=== PATIENT | male | born 1940 | race Caucasian/White ===

== ENCOUNTER 2017-06-30 16:38 | Inpatient (IN) | payer MEDICARE ==
[2017-06-30 17:33] LABS: INR 1.19 (0.77-1.02)
--- NOTE | 2017-06-30 17:44 | RAD ---
INDICATION: Weakness COMPARISON: None. TECHNIQUE: Single AP portable view of the chest was obtained. FINDINGS: Image quality is compromised due to the relative inferiority of a portable chest x-ray. The heart and mediastinum exhibit normal size and contour. Overlying the mid-level left lung is a 1.3 cm triangular density that appears to be located within the major fissure. There is elevation of the left hemidiaphragm somewhat obscuring the left lung base. The right lung is adequately aerated. Visualized bones are normal for the patient's age. IMPRESSION: Density seen at the mid-level left lung could be fluid in the fissure or a soft tissue nodule. There appears to be asymmetric elevation of the left hemidiaphragm.
[2017-06-30 17:47] LABS: EGFR Non-African American 30.4 (>60)
[2017-06-30] MEDS ORDERED: NS 0.9% 1000 ML* 1,000 ML IV ONE (17:54)
[2017-06-30 19:00] LABS: ABS Neutrophils 3.4 10^3/ul (1.5-7.7); Hematocrit 27 % (42-52); Hemoglobin 8.4 g/dl (14.0-18.0); Mean Corpuscular HGB Conc 32 g/dl (31-36); Mean Corpuscular Hemoglobin 22 pg (27-31); Mean Corpuscular Volume 68 fL (80-94); Mean Platelet Volume 9 um3 (7.4-10.4); Platelet Count 95 10^3/ul (150-450); Red Blood Count 3.88 10^6/ul (4.0-5.4); Red Cell Distribution Width 30 % (10.5-15); White Blood Count 6.6 10^3/ul (3.5-10.8)
[2017-06-30 19:20] LABS: Urine Appearance Cloudy; Urine Blood 1+ (Negative); Urine Color Yellow; Urine Ketones Negative (Negative); Urine Protein Negative (Negative); Urine Specific Gravity 1.009 (1.010-1.030); Urine Urobilinogen Negative (Negative)
[2017-06-30] MEDS ORDERED: NS 0.9% 500 ML* 500 ML IV ONE (20:12)
[2017-06-30] MEDS ORDERED: Acetaminophen TAB* 325 MG PO PRN (20:14)
[2017-06-30] MEDS ORDERED: Ondansetron INJ* 2 MG/ML VIAL IV PRN (20:14)
[2017-06-30] MEDS ORDERED: Al Hydrox/Mg Hydrox/Simet LIQ* 30 ML UDC PO PRN (20:14)
[2017-06-30] MEDS ORDERED: Morphine INJ* 2 MG/ML 1 ML CARPUJECT IV PRN (20:14)
--- NOTE | 2017-06-30 21:37 | RAD ---
INDICATION: Headache and weakness patient recently diagnosed with metastatic colon cancer COMPARISON: None. TECHNIQUE: Contiguous axial sections of the brain were obtained from the skull base to the vertex without contrast. FINDINGS: The ventricles, cisterns and sulci mild symmetrical involutional changes. The mitchell-white matter differentiation is adequately maintained and there is no sulcal effacement. No significant focal abnormality or mass effect is present. There is no evidence for intracranial hemorrhage. There is coarse atherosclerotic calcification of the bilateral vertebral arteries and petrous carotid arteries. No significant focal osseous abnormality is present. The visualized portion of the paranasal sinuses appear clear. The posterior left mastoid air cells are hypoplastic relative to the contralateral side. Otherwise the mastoid air cells are well aerated bilaterally. IMPRESSION: No acute intracranial abnormality including hemorrhage or intracranial mass.
[2017-06-30] MEDS: Ferrous Sulfate TAB* 325 MG PO SCH (21:46)
--- NOTE | 2017-06-30 22:19 | PN ---
Progress Note - Progress Note Date of Service: 06/30/17 Note: Arrived to floor hypothermic, ordered blood cultures and started cefepime - initial u/a is was not a clean catch. Asked for a repeat clean catch. Will place bear hugger. Family and patient decided DNR/DNI - MOL[facility] signed.
[2017-06-30] MEDS: Cefepime 1 GM in Dextrose(*) 1 GM/50 ML BAG IV SCH (23:46)
[2017-07-01] MEDS ORDERED: NS 0.9% 500 ML* 500 ML IV ONE (03:03)
[2017-07-01 04:15] LABS: Urine Appearance Clear; Urine Blood 1+ (Negative); Urine Color Yellow; Urine Ketones Negative (Negative); Urine Protein Negative (Negative); Urine Urobilinogen Negative (Negative)
--- NOTE | 2017-07-01 04:16 | HP ---
CC: Dr. Carrasco; Dr. Cai * HISTORY AND PHYSICAL: DATE OF ADMISSION: 06/30/17 TIME OF EVALUATION: 1899. PRIMARY CARE PHYSICIAN: Tom Carrasco MD ONCOLOGIST: Jose Cai MD CHIEF COMPLAINT: Weakness. HISTORY OF PRESENT ILLNESS: This is a 77-year-old male with a past medical history of presumed colon cancer with liver metastasis, followed by Dr. Cai, who presented to the emergency room today for worsening weakness over the past week. The patient states he started with significant diffuse body swelling back in March. He went to see his primary care physician, he got worked up. He was found to have congestive heart failure and cancer, presumed to be colon with liver metastasis and an ejection fraction of 25% and he is being seen by Dr. Carr. He states he appeared to be cleared for chemotherapy. He was scheduled to get a port placed tomorrow with Dr. Reyez, but his weakness has gotten worse. He has had worsening loose stools with uncontrolled stool incontinence in the morning. He has also noticed recent bright red blood per rectum and dark stools. He has had significant amount of lightheadedness. The past week, his appetite has significantly diminished and he is also complaining of significant pressure behind his eyes with vision changes. He also has some low back pain. He denies any urinary symptoms, no urinary incontinence, burning , or retention. He came to the emergency room this evening, because he has been unable to get out of bed for the past 3 to 4 days. He is incredibly weak. He is using a walker. He has no falls in the past few weeks. His , Cecilia, has been helping him at home. She states that she has been managing his care without any issues. He states he is mildly short of breath. He has had some right-sided chest pain. He has had a cough off and on for the past few weeks. No fevers, no chills, no nausea, and no vomiting. Otherwise, review of systems is negative. In the emergency room, the patient has labs, imaging, and was referred to the hospitalist service for further evaluation. PAST MEDICAL HISTORY: 1. Presumed colon cancer with liver metastasis, followed by Dr. Cai. 2. Iron deficiency anemia. 3. History of cataracts. 4. History of shoulder surgery in 1949. 5. History of knee surgery in 1950. 6. History of pilonidal cyst surgery in the past. 7. History of congenital absent kidney. 8. History of congestive heart failure with ejection fraction of 25% to 30% based on echo in April 2017, followed by Dr. Carr. 9. [id number] MR. MEDICATIONS: 1. Ferrous sulfate 325 mg p.o. b.i.d. 2. Atorvastatin 20 mg p.o. daily. 3. Torsemide 40 mg p.o. daily. 4. Digoxin was discontinued on 06/28/17. 5. Potassium chloride 20 mEq 2 tabs p.o. daily. 6. Aspirin 81 mg daily. 7. His losartan 25 mg p.o. daily was also discontinued on 06/28/17. ALLERGIES: No known drug allergies. FAMILY HISTORY: Father at age 77 from congestive heart failure and mother at age 75 from brain tumor, sister in her 60s from presumed liver cancer and brother from an NM at age 45. SOCIAL HISTORY: The patient lives at home with his , Cecilia, who is his healthcare proxy. 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 They moved to [place] years ago. He has a [id number] history of smoking, quit in 2006. No alcohol or illicit drug use. His healthcare proxy is his , Cecilia. I discussed the MOL[facility] at length. They are going to review with the and son and fill it out and get it back to me. REVIEW OF SYSTEMS: A 14-point review of systems as mentioned in the HPI, otherwise negative. PHYSICAL EXAMINATION GENERAL: Frail and elderly cachectic male, in no acute distress, with his and son at the bedside. VITAL SIGNS: Temp 98.3, pulse rate 65, respiratory rate 14, oxygen saturation 98 % on room air, blood pressure 106/58. HEENT: Bitemporal muscle wasting. Head normocephalic. Pupils equal, reactive , anicteric. Oropharynx: Mucous membranes are dry. NECK: Supple. No lymphadenopathy. RESPIRATORY: Diminished breath sounds, prolonged expiratory phase. No wheezing , rhonchi, or rales. CARDIAC: Regular rate and rhythm. Soft systolic murmur heard best at the right sternal base. ABDOMEN: Hypoactive bowel sounds. Moderate distention. Moderately firm. Generalized tenderness. No rebound or guarding. EXTREMITIES: +1 pretibial edema. +1 DPs. NEUROLOGIC: Alert and oriented x3. No gross focal neurologic deficits. He has diffuse symmetrical weakness. DIAGNOSTIC STUDIES/LAB DATA: White count 6.6, hemoglobin 8.4, hematocrit 27, platelets 95. INR is 1.19. Sodium 138, potassium 3.7, chloride 99, bicarb 29, BUN 69, creatinine 2.12, glucose 132, lactic acid 3.0. Total bilirubin 5.2, AST 58, ALT 41, alk phos 555. Troponin 0.06. CRP is 104. Albumin is 2.4. TSH is 3.33. UA: +1 blood, positive nitrite, +3 leuks, trace blood, 3+ white, positive squamous cells. Radiographic data: Density seen at the mid level, left lung, could be fluid or fissure or soft tissue nodule. There appears to be asymmetric elevation of the left hemidiaphragm. EKG: Shows sinus bradycardia with a heart rate of 58, first-degree heart block , left bundle branch block. No prior EKG to compare to. ASSESSMENT AND PLAN: This is a 77-year-old male with a past medical history of a recent diagnosis with presumed colon cancer with liver metastasis, followed by Dr. Cai, not yet started treatment, and new diagnosis of congestive heart failure, presents to the emergency room with weakness. 1. Weakness. Assessment: This appears to be multifactorial. He appears to be dehydrated, likely from overdiuresis and with the stool output and anemia, as also could be progression of his cancer with the elevated bilirubin as well. I did speak with Dr. Garcia regarding admission and they will take over service in the morning. Plan: We will admit him to telemetry. We will give him a gentle 500 cc bolus and a unit of blood. We will repeat an H and H this evening and repeat his labs in the morning. Renally dose his medications. We will order an ultrasound to rule out portal vein thrombosis and any progression of liver disease into the biliary tract in the setting with elevated bilirubin. 2. Elevated troponin. I suspect this is in the setting of renal failure. He has no chest pain. Plan: We will trend his troponin. 3. Pyuria. The patient has no urinary symptoms. He states this urine sample was not a clean catch. He has lot of scrotal edema. Bladder scan was less than 100 cc. We will continue bladder scanning him. It is possible there is an obstruction there leading to his renal failure. He may need a Mcconnell at some point. 3. Vision changes with pressure behind the eyes. Assessment: Per Dr. Garcia unlikely this is brain metastasis. Plan: We will start with a head CT and follow up accordingly for further imaging determined by Oncology. CHRONIC MEDICAL PROBLEMS: 1. Colon cancer with liver mets. Assessment: The patient with ongoing bloody stools and progression, what appears to be worsening performance status. He was scheduled to get a port placed tomorrow and gets chemotherapy initiated. I spoke with him in length regarding his prognosis. He states he is aware, Dr. Cai told him 2 months to 2 years. I spoke that he may be able to perk up from this, but he may no longer be a candidate for chemotherapy. They are going to go through the MOL[facility] form at length and follow up with Oncology in the morning. 2. FEN. Low-salt diet. Regular diet. 3. DVT prophylaxis. Place him on SCDs in the setting of GI bleed. 4. Code status for now is full code. MOLST form was given to them, they are going to look out it and discuss together. Recommend follow up on this. I spoke with him at length regarding his poor prognosis. PATIENT TIME: Greater than 70 minutes doing the history and physical, more than half the time spent in direct patient contact. [id number]/[facility] #: [id number] APARNA
[2017-07-01 04:37] LABS: Hematocrit 25 % (42-52); Hemoglobin 8.1 g/dl (14.0-18.0); Mean Corpuscular HGB Conc 33 g/dl (31-36); Mean Corpuscular Hemoglobin 23 pg (27-31); Mean Corpuscular Volume 69 fL (80-94); Red Blood Count 3.61 10^6/ul (4.0-5.4); Red Cell Distribution Width 30 % (10.5-15); White Blood Count 6.7 10^3/ul (3.5-10.8)
[2017-07-01 04:47] LABS: EGFR Non-African American 30.1 (>60)
[2017-07-01 05:20] LABS: Platelet Count 183 10^3/ul (150-450)
[2017-07-01 05:58] LABS: Hematocrit 26 % (42-52); Hemoglobin 8.7 g/dl (14.0-18.0)
[2017-07-01 06:08] LABS: Monocytes % 1 % (0-7)
[2017-07-01] MEDS: Ferrous Sulfate TAB* 325 MG PO SCH ×2 (09:11→20:49)
--- NOTE | 2017-07-01 09:57 | PN ---
Progress Note - Progress Note Date of Service: 07/01/17 SOAP: Subjective: []Feeling OK, but very tired and weak. Hot with bear hugger. Feels better laying on side then back. Bladder scan this AM with >400 mL, little UO per nursing and I&Os. Breathing feels OK. Understands limited prognosis, though isn't sure what he wants at this time. is not in yet. Medications: Acetaminophen (Tylenol Tab*) 650 mg PO Q4H PRN PRN Reason: FEVER/PAIN Last Admin: 07/01/17 09:11 Dose: 650 mg Al Hydrox/Mg Hydrox/Simethicone (Maalox Plus*) 30 ml PO Q6H PRN PRN Reason: INDIGESTION Ferrous Sulfate (Ferrous Sulfate Tab*) 325 mg PO BID [facility] Last Admin: 07/01/17 09:11 Dose: 325 mg Cefepime HCl (Maxipime 1 Gm In Dextrose Duplex (*)) 1 gm in 50 mls @ 100 mls/ hr IV Q12H [facility] Last Admin: 06/30/17 23:46 Dose: 100 mls/hr Morphine Sulfate (Morphine Inj (Syringe)*) 2 mg IV Q4H PRN PRN Reason: PAIN Ondansetron HCl (Zofran Inj*) 4 mg IV Q4H PRN PRN Reason: NAUSEA/VOMITING Oxycodone/Acetaminophen (Percocet 5/325 Tab*) 1 tab PO Q4H PRN PRN Reason: Pain Objective: [] Vital Signs Temp Pulse Resp BP Pulse Ox 97.6 F 73 17 88/44 94 07/01/17 07:23 07/01/17 07:23 07/01/17 07:32 07/01/17 07:20 07/01/17 07:23 A&Ox3, EOMI, notably weak and sleepy HRR, SR on tele, distant heart sounds LS clear bilat., resp. even and non-labored +BS, abd. soft and non-tender +peripheral edema Skin dry with poor turgor Laboratory Results - last 24 hr 06/30/17 06/30/17 06/30/17 17:15 17:15 17:15 WBC 6.6 RBC 3.88 L Hgb 8.4 L Hct 27 L MCV 68 L MCH 22 L MCHC 32 RDW 30 H Plt Count 95 L MPV 9 Neut % (Auto) Not Reportable Lymph % (Auto) Not Reportable Hunt % (Auto) Not Reportable Eos % (Auto) Not Reportable Baso % (Auto) Not Reportable Absolute Neuts (auto) 3.4 Absolute Lymphs (auto) Not Reportable Absolute Monos (auto) Not Reportable Absolute Eos (auto) Not Reportable Absolute Basos (auto) Not Reportable Absolute Nucleated RBC Not Reportable Neutrophils % Lymphocytes % Monocytes % Eosinophils % Basophils % Nucleated RBC % Not Reportable Abs Neuts (Manual) Abs Lymphs (Manual) Abs Monocytes (Manual) Absolute Eos (Manual) Abs Basophils (Manual) Large Platelets Normal RBC Morphology Polychromasia 2+ Hypochromasia 2+ Anisocytosis 1+ Microcytosis 2+ Target Cells Elliptocytes INR (Anticoag Therapy) Sodium 138 Potassium 3.7 Chloride 99 L Carbon Dioxide 29 Anion Gap 10 BUN 69 H Creatinine 2.12 H Est GFR ( Amer) 39.2 Est GFR (Non-Af Amer) 30.4 BUN/Creatinine Ratio 32.5 H Glucose 132 H POC Glucose (mg/dL) Lactic Acid 3.0 H* Calcium 8.1 L Magnesium 2.6 Total Bilirubin 5.20 H AST 58 H ALT 41 Alkaline Phosphatase 555 H Total Creatine Kinase 103 Troponin I 0.06 H* C-Reactive Protein 104.55 H Total Protein 5.1 L Albumin 2.4 L Globulin 2.7 Albumin/Globulin Ratio 0.9 L Prealbumin 5 L TSH 3.33 Cortisol Urine Color Urine Appearance Urine pH Ur Specific Hanahan Urine Protein Urine Ketones Urine Blood Urine Nitrate Urine Bilirubin Urine Urobilinogen Ur Leukocyte Esterase Urine WBC (Auto) Urine RBC (Auto) Ur Squamous Epith Cells Urine Bacteria Hyaline Casts Urine Glucose Blood Type Antibody Screen Crossmatch Donor Unit # Post-Trans Blood Type Post-Trans SINDY 06/30/17 06/30/17 06/30/17 17:15 17:15 19:00 WBC RBC Hgb Hct MCV MCH MCHC RDW Plt Count MPV Neut % (Auto) Lymph % (Auto) Hunt % (Auto) Eos % (Auto) Baso % (Auto) Absolute Neuts (auto) Absolute Lymphs (auto) Absolute Monos (auto) Absolute Eos (auto) Absolute Basos (auto) Absolute Nucleated RBC Neutrophils % Lymphocytes % Monocytes % Eosinophils % Basophils % Nucleated RBC % Abs Neuts (Manual) Abs Lymphs (Manual) Abs Monocytes (Manual) Absolute Eos (Manual) Abs Basophils (Manual) Large Platelets Normal RBC Morphology Polychromasia Hypochromasia Anisocytosis Microcytosis Target Cells Elliptocytes INR (Anticoag Therapy) 1.19 H Sodium Potassium Chloride Carbon Dioxide Anion Gap BUN Creatinine Est GFR ( Amer) Est GFR (Non-Af Amer) BUN/Creatinine Ratio Glucose POC Glucose (mg/dL) Lactic Acid Calcium Magnesium Total Bilirubin AST ALT Alkaline Phosphatase Total Creatine Kinase Troponin I C-Reactive Protein Total Protein Albumin Globulin Albumin/Globulin Ratio Prealbumin TSH Cortisol Urine Color Yellow Urine Appearance Cloudy Urine pH 5.0 Ur Specific Hanahan 1.009 L Urine Protein Negative Urine Ketones Negative Urine Blood 1+ A Urine Nitrate Positive A Urine Bilirubin Negative Urine Urobilinogen Negative Ur Leukocyte Esterase 3+ A Urine WBC (Auto) 3+(>20/hpf) A Urine RBC (Auto) Trace(0-2/hpf) Ur Squamous Epith Cells Present A Urine Bacteria Absent Hyaline Casts Present A Urine Glucose Negative Blood Type A Positive Antibody Screen Negative Crossmatch See Detail Donor Unit # Post-Trans Blood Type Post-Trans SINDY 06/30/17 07/01/17 07/01/17 21:49 02:45 04:07 WBC 6.7 RBC 3.61 L Hgb 8.1 L Hct 25 L MCV 69 L MCH 23 L MCHC 33 RDW 30 H Plt Count 183 MPV Not Reportable Neut % (Auto) Lymph % (Auto) Hunt % (Auto) Eos % (Auto) Baso % (Auto) Absolute Neuts (auto) Absolute Lymphs (auto) Absolute Monos (auto) Absolute Eos (auto) Absolute Basos (auto) Absolute Nucleated RBC Neutrophils % 94 H Lymphocytes % 5 L Monocytes % 1 Eosinophils % 0 Basophils % 0 Nucleated RBC % Abs Neuts (Manual) 6.3 Abs Lymphs (Manual) 0.3 L Abs Monocytes (Manual) 0.1 Absolute Eos (Manual) 0 Abs Basophils (Manual) 0 Large Platelets Present Normal RBC Morphology Not Reportable Polychromasia Hypochromasia 2+ Anisocytosis Microcytosis Target Cells 2+ Elliptocytes 1+ INR (Anticoag Therapy) Sodium Potassium Chloride Carbon Dioxide Anion Gap BUN Creatinine Est GFR ( Amer) Est GFR (Non-Af Amer) BUN/Creatinine Ratio Glucose POC Glucose (mg/dL) Lactic Acid Calcium Magnesium Total Bilirubin AST ALT Alkaline Phosphatase Total Creatine Kinase Troponin I 0.05 H* C-Reactive Protein Total Protein Albumin Globulin Albumin/Globulin Ratio Prealbumin TSH Cortisol Urine Color Yellow Urine Appearance Clear Urine pH 5.0 Ur Specific Hanahan 1.010 Urine Protein Negative Urine Ketones Negative Urine Blood 1+ A Urine Nitrate Positive A Urine Bilirubin Negative Urine Urobilinogen Negative Ur Leukocyte Esterase 2+ A Urine WBC (Auto) 3+(>20/hpf) A Urine RBC (Auto) 2+(6-10/hpf) A Ur Squamous Epith Cells Urine Bacteria 1+ A Hyaline Casts Urine Glucose Negative Blood Type Antibody Screen Crossmatch Donor Unit # Post-Trans Blood Type Post-Trans SINDY 07/01/17 07/01/17 07/01/17 04:07 04:07 04:11 WBC RBC Hgb Hct MCV MCH MCHC RDW Plt Count MPV Neut % (Auto) Lymph % (Auto) Hunt % (Auto) Eos % (Auto) Baso % (Auto) Absolute Neuts (auto) Absolute Lymphs (auto) Absolute Monos (auto) Absolute Eos (auto) Absolute Basos (auto) Absolute Nucleated RBC Neutrophils % Lymphocytes % Monocytes % Eosinophils % Basophils % Nucleated RBC % Abs Neuts (Manual) Abs Lymphs (Manual) Abs Monocytes (Manual) Absolute Eos (Manual) Abs Basophils (Manual) Large Platelets Normal RBC Morphology Polychromasia Hypochromasia Anisocytosis Microcytosis Target Cells Elliptocytes INR (Anticoag Therapy) Sodium 138 Potassium 3.4 L Chloride 101 Carbon Dioxide 29 Anion Gap 8 BUN 72 H Creatinine 2.14 H Est GFR ( Amer) 38.7 Est GFR (Non-Af Amer) 30.1 BUN/Creatinine Ratio 33.6 H Glucose 69 L POC Glucose (mg/dL) Lactic Acid Calcium 7.4 L Magnesium Total Bilirubin 5.10 H AST 55 H ALT 36 Alkaline Phosphatase 471 H Total Creatine Kinase Troponin I C-Reactive Protein Total Protein 4.4 L Albumin 2.1 L Globulin 2.3 Albumin/Globulin Ratio 0.9 L Prealbumin TSH Cortisol 24.71 Urine Color Urine Appearance Urine pH Ur Specific Hanahan Urine Protein Urine Ketones Urine Blood Urine Nitrate Urine Bilirubin Urine Urobilinogen Ur Leukocyte Esterase Urine WBC (Auto) Urine RBC (Auto) Ur Squamous Epith Cells Urine Bacteria Hyaline Casts Urine Glucose Blood Type Antibody Screen Crossmatch Donor Unit # [id number] Post-Trans Blood Type A Positive Post-Trans SINDY Negative 07/01/17 07/01/17 05:44 07:18 WBC RBC Hgb 8.7 L Hct 26 L MCV MCH MCHC RDW Plt Count MPV Neut % (Auto) Lymph % (Auto) Hunt % (Auto) Eos % (Auto) Baso % (Auto) Absolute Neuts (auto) Absolute Lymphs (auto) Absolute Monos (auto) Absolute Eos (auto) Absolute Basos (auto) Absolute Nucleated RBC Neutrophils % Lymphocytes % Monocytes % Eosinophils % Basophils % Nucleated RBC % Abs Neuts (Manual) Abs Lymphs (Manual) Abs Monocytes (Manual) Absolute Eos (Manual) Abs Basophils (Manual) Large Platelets Normal RBC Morphology Polychromasia Hypochromasia Anisocytosis Microcytosis Target Cells Elliptocytes INR (Anticoag Therapy) Sodium Potassium Chloride Carbon Dioxide Anion Gap BUN Creatinine Est GFR ( Amer) Est GFR (Non-Af Amer) BUN/Creatinine Ratio Glucose POC Glucose (mg/dL) 75 Lactic Acid Calcium Magnesium Total Bilirubin AST ALT Alkaline Phosphatase Total Creatine Kinase Troponin I C-Reactive Protein Total Protein Albumin Globulin Albumin/Globulin Ratio Prealbumin TSH Cortisol Urine Color Urine Appearance Urine pH Ur Specific Han[place] Urine Protein Urine Ketones Urine Blood Urine Nitrate Urine Bilirubin Urine Urobilinogen Ur Leukocyte Esterase Urine WBC (Auto) Urine RBC (Auto) Ur Squamous Epith Cells Urine Bacteria Hyaline Casts Urine Glucose Blood Type Antibody Screen Crossmatch Donor Unit # Post-Trans Blood Type Post-Trans SINDY Intake and Output Last 24 Hours 06/29/17 06/30/17 07/01/17 07/02/17 06:59 06:59 06:59 06:59 Intake Total 1380 Output Total 350 Balance 1030 Weight 138 lb 6.4 oz Intake: IV Fluids 1030 NS (0.9%) 1030 IVPB 320 NS (0.9%) 320 Oral 30 Output: Urine 350 Other: Estimated Void Small # Bowel Movements 1 Estimated Stool Amount Small # Voids 1 Assessment: []77 yo male with recently diagnosed stage IV colon cancer admitted with weakness. He has significant liver dysfunction and at this point is not a candidate for therapy, I have counseled him that his prognosis is guarded. Long discussion with pt. and regarding the reality of his current condition. His liver US shows biliary dilation that if is infective may start to improve with abx., however underlying tumor burden likely the culprit. His underlying poor cardiac function further complicates his condition and while I think it prudent to see if he improves over the next 24 hours, I think ultimately he will benefit most from hospice and his is in agreement. At this time she is motivated to take him home. Plan: []Palliative consult and hospice referral Cont. IV fluids and abx. today, repeat labs in AM Focus on comfort and will use borja to decrease urinary retention and pt. comfort DNR/DNI
[2017-07-01] MEDS ORDERED: NS 0.9% w/ 40 Meq KCL 1000 ML* 1,000 ML IV SCH (10:00)
--- NOTE | 2017-07-01 10:12 | RAD ---
Indication: Ascites in a patient with colon cancer metastatic to the liver Comparison: CT dated May 01, 2017 that shows multiple large metastatic masses in the liver Technique: Duplex ultrasound with spectral analysis was used to study select portions of the IVC, the portal venous system (portal veins, SMV and splenic veins) and hepatic veins. Report: At least 2 large liver masses are identified in the right lobe measuring 12.5 and 9.4 cm in greatest dimension. The liver is enlarged overall measuring 20.5 cm in greatest cephalocaudal dimension. There is severe intrahepatic biliary duct dilatation and the common bile duct is dilated up to 1 cm in diameter. Intraluminal gallstones are noted. The hepatic veins are patent and demonstrate normal hepatofugal flow. The IVC is patent. The portal vein is mildly dilated measuring 1.5 cm in diameter. The portal and main branches are patent and demonstrate normal hepatopetal flow. Portal wave form is normal. The splenic and visualized portions of the superior mesenteric veins are adequately patent and exhibit hepatopetal flow. IMPRESSION: 1. Large liver masses corresponding to the images acquired on the May 01, 2017 CT exam. 2. Intra and extrahepatic biliary duct dilatation. 3. Patent flow with correct directionality identified in the hepatic and portal veins, although the portal vein is mildly dilated to 1.5 cm.
[2017-07-01] MEDS: Cefepime 1 GM in Dextrose(*) 1 GM/50 ML BAG IV SCH ×2 (11:12→23:22)
--- NOTE | 2017-07-01 11:21 | ED ---
Jaya Olguin Thomas, scribed for Kris Desai MD on 06/30/17 at 1703 . Complex/Multi-Sys Presentation - HPI Summary HPI Summary: The patient is a 77 year old male who was diagnosed with liver cancer about a month ago. Today, he came to the emergency department with generalized weakness that began suddenly today. He also reports feelings of disorientation. He complains of diarrhea. His oncologist is Dr. Cai and his oil field operator is Dr. Carr. - History Of Current Complaint Time Seen by Provider: 06/30/17 16:42 Hx Obtained From: Patient Onset/Duration: Sudden Onset, Lasting Hours, Still Present Timing: Constant Severity Currently: Moderate Alleviating Factor(s): None Associated Signs And Symptoms: Positive: Other - Generalized weakness, disorientation, diarrhea Related History: Other - Recent Dx liver cancer - Allergies/Home Medications Allergies/Adverse Reactions: Allergies Allergy/AdvReac Type Severity Reaction Status Date / Time No Known Allergies Allergy Verified 05/20/17 10:20 Home Medications: Home Medications Spironolactone TAB* [Aldactone TAB*] 25 mg PO DAILY 06/30/17 [History Confirmed 06/30/17] PMH/Surg Hx/FS Hx/Imm Hx Endocrine/Hematology History: Denies: Hx Diabetes Cardiovascular History: Reports: Hx Hypertension History: Denies: Hx Renal Disease - Cancer History Cancer Type, Location and Year: Liver CA Infectious Disease History: Denies: Traveled Outside the [place] in Last 30 Days - Family History Known Family History: Positive: Other - Brain CA - Social History Alcohol Use: Rare Substance Use Type: Reports: None Smoking Status (MU): Former Smoker Review of Systems Positive: Diarrhea Neurological: Other - Generalized weakness, disorientation All Other Systems Reviewed And Are Negative: Yes Physical Exam - Summary Physical Exam Summary: Appearance: The patient is well-nourished in no acute distress and in no acute pain. Skin: The skin is warm and dry and skin color reflects adequate perfusion. He is slightly jaundiced. HEENT: The head is normocephalic and atraumatic. The pupils are equal and reactive. The sclerae are icteric. Nares are patent and without drainage. Mouth reveals moist mucous membranes and the throat is without erythema and exudate. The external ears are intact. The ear canals are patent and without drainage. The tympanic membranes are intact. Neck: the neck is supple with full range of motion and non-tender. There are no carotid bruits. There is no neck vein distension. Respiratory: Chest is non-tender. Lungs are clear to auscultation and breath sounds are symmetrical and equal. Cardiovascular: Heart is regular rate and rhythm.~There is no murmur or rub auscultated. There is no peripheral edema and pulses are symmetrical and equal. Abdomen: The abdomen is soft and non-tender. There are normal bowel sounds heard in all four quadrants and there is no organomegaly palpated. Musculoskeletal: There is no back tenderness noted. Extremities are non-tender with full range of motion. There is good capillary refill. There is no peripheral edema or calf tenderness elicited. Neurological: Patient is alert and oriented to person, place and time. The patient has symmetrical motor strength in all four extremities.~Cranial nerves are grossly intact. Deep tendon reflexes are symmetrical and equal in all four extremities. Psychiatric: The patient has an appropriate affect and does not exhibit any anxiety or depression. Triage Information Reviewed: Yes Vital Signs On Initial Exam: Initial Vitals BP 104/54 06/30/17 16:46 Vital Signs Reviewed: Yes Diagnostics - Vital Signs Vital Signs Temp Pulse Resp BP Pulse Ox 06/30/17 20:01 65 18 102/69 96 06/30/17 20:00 63 10 97 06/30/17 19:30 60 19 108/64 97 06/30/17 19:00 64 22 109/75 98 06/30/17 18:30 62 23 106/63 96 06/30/17 18:00 60 15 99/62 96 06/30/17 17:30 62 18 103/70 100 06/30/17 17:06 98.3 F 58 16 95/63 99 06/30/17 17:00 18 95/63 06/30/17 16:48 51 16 100 06/30/17 16:46 104/54 - Laboratory Lab Results: Lab Results 06/30/17 06/30/17 06/30/17 Range/Units 17:15 17:15 17:15 WBC 6.6 (3.5-10.8) 10^3/ul RBC 3.88 L (4.0-5.4) 10^6/ul Hgb 8.4 L (14.0-18.0) g/dl Hct 27 L (42-52) % MCV 68 L (80-94) fL MCH 22 L (27-31) pg MCHC 32 (31-36) g/dl RDW 30 H (10.5-15) % Plt Count 95 L (150-450) 10^3/ul MPV 9 (7.4-10.4) um3 Neut % (Auto) Not Reportable Lymph % (Auto) Not Reportable [place] % (Auto) Not Reportable Eos % (Auto) Not Reportable Baso % (Auto) Not Reportable Absolute Neuts (auto) 3.4 (1.5-7.7) 10^3/ul Absolute Lymphs (auto) Not Reportable Absolute Monos (auto) Not Reportable Absolute Eos (auto) Not Reportable Absolute Basos (auto) Not Reportable Absolute Nucleated RBC Not Reportable Nucleated RBC % Not Reportable Polychromasia 2+ Hypochromasia 2+ Anisocytosis 1+ Microcytosis 2+ INR (Anticoag Therapy) (0.77-1.02) Sodium 138 (133-145) mmol/L Potassium 3.7 (3.5-5.0) mmol/L Chloride 99 L (101-111) mmol/L Carbon Dioxide 29 (22-32) mmol/L Anion Gap 10 (2-11) mmol/L BUN 69 H (6-24) mg/dL Creatinine 2.12 H (0.67-1.17) mg/dL Est GFR ( Amer) 39.2 (>60) Est GFR (Non-Af Amer) 30.4 (>60) BUN/Creatinine Ratio 32.5 H (8-20) Glucose 132 H (70-100) mg/dL Lactic Acid 3.0 H* (0.5-2.0) mmol/L Calcium 8.1 L (8.6-10.3) mg/dL Magnesium 2.6 (1.9-2.7) mg/dL Total Bilirubin 5.20 H (0.2-1.0) mg/dL AST 58 H (13-39) U/L ALT 41 (7-52) U/L Alkaline Phosphatase 555 H (34-104) U/L Total Creatine Kinase 103 (10-223) U/L Troponin I 0.06 H* (<0.04) ng/mL C-Reactive Protein 104.55 H (< 5.00) mg/L Total Protein 5.1 L (6.4-8.9) g/dL Albumin 2.4 L (3.2-5.2) g/dL Globulin 2.7 (2-4) g/dL Albumin/Globulin Ratio 0.9 L (1-3) Prealbumin 5 L (18-38) mg/dL TSH 3.33 (0.34-5.60) mcIU/mL Urine Color Urine Appearance Urine pH (5-9) Ur Specific [place] (1.010-1.030) Urine Protein (Negative) Urine Ketones (Negative) Urine Blood (Negative) Urine Nitrate (Negative) Urine Bilirubin (Negative) Urine Urobilinogen (Negative) Ur Leukocyte Esterase (Negative) Urine WBC (Auto) (Absent) Urine RBC (Auto) (Absent) Ur Squamous Epith Cells (Absent) Urine Bacteria (Absent) Hyaline Casts (Absent) Urine Glucose (Negative) Blood Type Antibody Screen Crossmatch 06/30/17 06/30/17 06/30/17 Range/Units 17:15 17:15 19:00 WBC (3.5-10.8) 10^3/ul RBC (4.0-5.4) 10^6/ul Hgb (14.0-18.0) g/dl Hct (42-52) % MCV (80-94) fL MCH (27-31) pg MCHC (31-36) g/dl RDW (10.5-15) % Plt Count (150-450) 10^3/ul MPV (7.4-10.4) um3 Neut % (Auto) Lymph % (Auto) [place] % (Auto) Eos % (Auto) Baso % (Auto) Absolute Neuts (auto) (1.5-7.7) 10^3/ul Absolute Lymphs (auto) Absolute Monos (auto) Absolute Eos (auto) Absolute Basos (auto) Absolute Nucleated RBC Nucleated RBC % Polychromasia Hypochromasia Anisocytosis Microcytosis INR (Anticoag Therapy) 1.19 H (0.77-1.02) Sodium (133-145) mmol/L Potassium (3.5-5.0) mmol/L Chloride (101-111) mmol/L Carbon Dioxide (22-32) mmol/L Anion Gap (2-11) mmol/L BUN (6-24) mg/dL Creatinine (0.67-1.17) mg/dL Est GFR ( Amer) (>60) Est GFR (Non-Af Amer) (>60) BUN/Creatinine Ratio (8-20) Glucose (70-100) mg/dL Lactic Acid (0.5-2.0) mmol/L Calcium (8.6-10.3) mg/dL Magnesium (1.9-2.7) mg/dL Total Bilirubin (0.2-1.0) mg/dL AST (13-39) U/L ALT (7-52) U/L Alkaline Phosphatase (34-104) U/L Total Creatine Kinase (10-223) U/L Troponin I (<0.04) ng/mL C-Reactive Protein (< 5.00) mg/L Total Protein (6.4-8.9) g/dL Albumin (3.2-5.2) g/dL Globulin (2-4) g/dL Albumin/Globulin Ratio (1-3) Prealbumin (18-38) mg/dL TSH (0.34-5.60) mcIU/mL Urine Color Yellow Urine Appearance Cloudy Urine pH 5.0 (5-9) Ur Specific [place] 1.009 L (1.010-1.030) Urine Protein Negative (Negative) Urine Ketones Negative (Negative) Urine Blood 1+ A (Negative) Urine Nitrate Positive A (Negative) Urine Bilirubin Negative (Negative) Urine Urobilinogen Negative (Negative) Ur Leukocyte Esterase 3+ A (Negative) Urine WBC (Auto) 3+(>20/hpf) A (Absent) Urine RBC (Auto) Trace(0-2/hpf) (Absent) Ur Squamous Epith Cells Present A (Absent) Urine Bacteria Absent (Absent) Hyaline Casts Present A (Absent) Urine Glucose Negative (Negative) Blood Type A Positive Antibody Screen Negative Crossmatch See Detail Result Diagrams: 07/01/17 05:44 07/01/17 04:07 Lab Statement: Any lab studies that have been ordered have been reviewed, and results considered in the medical decision making process. - Radiology CXR Xray Interpretation: No Acute Changes - Density seen at the mid-level left lung could be fluid in the fissure or a soft tissue nodule. There appears to be asymmetric elevation of the left hemidiaphragm. Dr. Desai has reviewed this report. Radiology Interpretation Completed By: Radiologist - EKG 17:10 Cardiac Rate: NL EKG Rhythm: Sinus Rhythm - at 58 BPM EKG Interpretation: LBBB. No old EKGs to compare. Re-Evaluation - Re-Evaluation First Eval Re-Evaluation Time: 19:30 Comment: Results discussed. Patient will be seen by the hospitalists. Complex Multi-Symp Course/Dx Course Of Treatment: Mr. Santana had the sudden onset of severe fatigue and exhaustion today. He has been diagnosed relatively recently with colon CA with liver mets. He was jaundiced and icteric on presentation and found to have a obstructive looking picture on transaminases. He was anemic which is old and had renal insufficiency which is new. His trop was indeterminant and there are no old ones to compare. The hospitalist service is admitting him. - Diagnoses Provider Diagnoses: Jaundice, Hepatitis - Physician Notifications Discussed Care Of Patient With: Poppy Payne Time Discussed With Above Provider: 19:31 Instructed by Provider To: Admit As Inpatient Discharge - Discharge Plan Condition: Stable Disposition: ADMITTED TO [facility] documentation as recorded by the Jaya bueno Thomas accurately reflects the service I personally performed and the decisions made by me, Kris Desai MD.
[2017-07-01] MEDS: NS 0.9% w/ 40 Meq KCL 1000 ML* 1,000 ML IV SCH (11:56)
[2017-07-01] MEDS: oxyCODONE/Acetamin 5/325 MG* TAB PO PRN (12:01)
--- NOTE | 2017-07-01 16:18 | CONSULT ---
Palliative / Hospice Consult Ordering Provider: Angela Choi - Subjective Code Status: DNR Advance Directives Location: In Chart MOLST Part A Completed: Yes Date: 06/30/17 MOLST Part E Completed:: Yes Date: 06/30/17 HCP Completed: Yes - Cecilia Santana - History or Present Illness History or Present Illness: 77 year old man just discovered to have metastatic cancer, presumed of colon origin, in March 2017, and also CHF with EF of 25%, moderate to severe MR, per ECHO done April 2017. He was planning to initiate chemotherapy but was admitted yesterday for extreme weakness, unable to get out of bed for several days, and other symptoms including incontinence of loose stools and BRBPR, anorexia with malnutrition (albumin now 2.4), jaundice (bili 5.2) likely due to heavy hepatic tumor burden with dilated CBD. He became hypothermic in thehospital so was started on Cefipime yesterday. He has renal compromise as well with BUN 72 and Creatinine 2.12 which has not changed significantly with hydration, and he is anemic with H/H=8.4/27 on admission, warranting palliative transfusion. The patient lives in [facility] ([place] of [facility]) Lab Values: Abnormal Lab Results 06/30/17 07/01/17 07/01/17 21:49 02:45 04:07 WBC 6.7 RBC 3.61 L Hgb 8.1 L Hct 25 L MCV 69 L MCH 23 L MCHC 33 RDW 30 H Plt Count 183 MPV Not Reportable Neutrophils % 94 H Lymphocytes % 5 L Monocytes % 1 Eosinophils % 0 Basophils % 0 Abs Neuts (Manual) 6.3 Abs Lymphs (Manual) 0.3 L Abs Monocytes (Manual) 0.1 Absolute Eos (Manual) 0 Abs Basophils (Manual) 0 Large Platelets Present Normal RBC Morphology Not Reportable Hypochromasia 2+ Target Cells 2+ Elliptocytes 1+ Sodium Potassium Chloride Carbon Dioxide Anion Gap BUN Creatinine Est GFR ( Amer) Est GFR (Non-Af Amer) BUN/Creatinine Ratio Glucose POC Glucose (mg/dL) Calcium Total Bilirubin AST ALT Alkaline Phosphatase Ammonia Troponin I 0.05 H* Total Protein Albumin Globulin Albumin/Globulin Ratio Cortisol Urine Color Yellow Urine Appearance Clear Urine pH 5.0 Ur Specific [place] 1.010 Urine Protein Negative Urine Ketones Negative Urine Blood 1+ A Urine Nitrate Positive A Urine Bilirubin Negative Urine Urobilinogen Negative Ur Leukocyte Esterase 2+ A Urine WBC (Auto) 3+(>20/hpf) A Urine RBC (Auto) 2+(6-10/hpf) A Urine Bacteria 1+ A Urine Glucose Negative Donor Unit # Post-Trans Blood Type Post-Trans SINDY 07/01/17 07/01/17 07/01/17 04:07 04:07 04:11 WBC RBC Hgb Hct MCV MCH MCHC RDW Plt Count MPV Neutrophils % Lymphocytes % Monocytes % Eosinophils % Basophils % Abs Neuts (Manual) Abs Lymphs (Manual) Abs Monocytes (Manual) Absolute Eos (Manual) Abs Basophils (Manual) Large Platelets Normal RBC Morphology Hypochromasia Target Cells Elliptocytes Sodium 138 Potassium 3.4 L Chloride 101 Carbon Dioxide 29 Anion Gap 8 BUN 72 H Creatinine 2.14 H Est GFR ( Amer) 38.7 Est GFR (Non-Af Amer) 30.1 BUN/Creatinine Ratio 33.6 H Glucose 69 L POC Glucose (mg/dL) Calcium 7.4 L Total Bilirubin 5.10 H AST 55 H ALT 36 Alkaline Phosphatase 471 H Ammonia Troponin I Total Protein 4.4 L Albumin 2.1 L Globulin 2.3 Albumin/Globulin Ratio 0.9 L Cortisol 24.71 Urine Color Urine Appearance Urine pH Ur Specific [place] Urine Protein Urine Ketones Urine Blood Urine Nitrate Urine Bilirubin Urine Urobilinogen Ur Leukocyte Esterase Urine WBC (Auto) Urine RBC (Auto) Urine Bacteria Urine Glucose Donor Unit # [id number] Post-Trans Blood Type A Positive Post-Trans SINDY Negative 07/01/17 07/01/17 07/01/17 05:44 07:18 10:20 WBC RBC Hgb 8.7 L Hct 26 L MCV MCH MCHC RDW Plt Count MPV Neutrophils % Lymphocytes % Monocytes % Eosinophils % Basophils % Abs Neuts (Manual) Abs Lymphs (Manual) Abs Monocytes (Manual) Absolute Eos (Manual) Abs Basophils (Manual) Large Platelets Normal RBC Morphology Hypochromasia Target Cells Elliptocytes Sodium Potassium Chloride Carbon Dioxide Anion Gap BUN Creatinine Est GFR ( Amer) Est GFR (Non-Af Amer) BUN/Creatinine Ratio Glucose POC Glucose (mg/dL) 75 Calcium Total Bilirubin AST ALT Alkaline Phosphatase Ammonia 48 Troponin I Total Protein Albumin Globulin Albumin/Globulin Ratio Cortisol Urine Color Urine Appearance Urine pH Ur Specific [place] Urine Protein Urine Ketones Urine Blood Urine Nitrate Urine Bilirubin Urine Urobilinogen Ur Leukocyte Esterase Urine WBC (Auto) Urine RBC (Auto) Urine Bacteria Urine Glucose Donor Unit # Post-Trans Blood Type Post-Trans SINDY Laboratory Last Values WBC 6.7 10^3/ul (3.5-10.8) 07/01/17 04:07 RBC 3.61 10^6/ul (4.0-5.4) L 07/01/17 04:07 Hgb 8.7 g/dl (14.0-18.0) L 07/01/17 05:44 Hct 26 % (42-52) L 07/01/17 05:44 MCV 69 fL (80-94) L 07/01/17 04:07 MCH 23 pg (27-31) L 07/01/17 04:07 MCHC 33 g/dl (31-36) 07/01/17 04:07 RDW 30 % (10.5-15) H 07/01/17 04:07 Plt Count 183 10^3/ul (150-450) 07/01/17 04:07 MPV Not Reportable 07/01/17 04:07 Neut % (Auto) Not Reportable 06/30/17 17:15 Lymph % (Auto) Not Reportable 06/30/17 17:15 Bee % (Auto) Not Reportable 06/30/17 17:15 Eos % (Auto) Not Reportable 06/30/17 17:15 Baso % (Auto) Not Reportable 06/30/17 17:15 Absolute Neuts (auto) 3.4 10^3/ul (1.5-7.7) 06/30/17 17:15 Absolute Lymphs (auto) Not Reportable 06/30/17 17:15 Absolute Monos (auto) Not Reportable 06/30/17 17:15 Absolute Eos (auto) Not Reportable 06/30/17 17:15 Absolute Basos (auto) Not Reportable 06/30/17 17:15 Absolute Nucleated RBC Not Reportable 06/30/17 17:15 Neutrophils % 94 % (38-83) H 07/01/17 04:07 Lymphocytes % 5 % (25-47) L 07/01/17 04:07 Monocytes % 1 % (0-7) 07/01/17 04:07 Eosinophils % 0 % (0-6) 07/01/17 04:07 Basophils % 0 % (0-2) 07/01/17 04:07 Nucleated RBC % Not Reportable 06/30/17 17:15 Abs Neuts (Manual) 6.3 10^3/ul (1.5-7.7) 07/01/17 04:07 Abs Lymphs (Manual) 0.3 10^3/ul (1.0-4.8) L 07/01/17 04:07 Abs Monocytes (Manual) 0.1 10^3/ul (0-0.8) 07/01/17 04:07 Absolute Eos (Manual) 0 10^3/ul (0-0.6) 07/01/17 04:07 Abs Basophils (Manual) 0 10^3/ul (0-0.2) 07/01/17 04:07 Large Platelets Present 07/01/17 04:07 Normal RBC Morphology Not Reportable 07/01/17 04:07 Polychromasia 2+ 06/30/17 17:15 Hypochromasia 2+ 07/01/17 04:07 Anisocytosis 1+ 06/30/17 17:15 Microcytosis 2+ 06/30/17 17:15 Target Cells 2+ 07/01/17 04:07 Elliptocytes 1+ 07/01/17 04:07 INR (Anticoag Therapy) 1.19 (0.77-1.02) H 06/30/17 17:15 Sodium 138 mmol/L (133-145) 07/01/17 04:07 Potassium 3.4 mmol/L (3.5-5.0) L 07/01/17 04:07 Chloride 101 mmol/L (101-111) 07/01/17 04:07 Carbon Dioxide 29 mmol/L (22-32) 07/01/17 04:07 Anion Gap 8 mmol/L (2-11) 07/01/17 04:07 BUN 72 mg/dL (6-24) H 07/01/17 04:07 Creatinine 2.14 mg/dL (0.67-1.17) H 07/01/17 04:07 Est GFR ( Amer) 38.7 (>60) 07/01/17 04:07 Est GFR (Non-Af Amer) 30.1 (>60) 07/01/17 04:07 BUN/Creatinine Ratio 33.6 (8-20) H 07/01/17 04:07 Glucose 69 mg/dL (70-100) L 07/01/17 04:07 POC Glucose (mg/dL) 75 mg/dL (70-100) 07/01/17 07:18 Lactic Acid 3.0 mmol/L (0.5-2.0) H* 06/30/17 17:15 Calcium 7.4 mg/dL (8.6-10.3) L 07/01/17 04:07 Magnesium 2.6 mg/dL (1.9-2.7) 06/30/17 17:15 Total Bilirubin 5.10 mg/dL (0.2-1.0) H 07/01/17 04:07 AST 55 U/L (13-39) H 07/01/17 04:07 ALT 36 U/L (7-52) 07/01/17 04:07 Alkaline Phosphatase 471 U/L (34-104) H 07/01/17 04:07 Ammonia 48 mol/L (16-53) 07/01/17 10:20 Total Creatine Kinase 103 U/L (10-223) 06/30/17 17:15 Troponin I 0.05 ng/mL (<0.04) H* 06/30/17 21:49 C-Reactive Protein 104.55 mg/L (< 5.00) H 06/30/17 17:15 Total Protein 4.4 g/dL (6.4-8.9) L 07/01/17 04:07 Albumin 2.1 g/dL (3.2-5.2) L 07/01/17 04:07 Globulin 2.3 g/dL (2-4) 07/01/17 04:07 Albumin/Globulin Ratio 0.9 (1-3) L 07/01/17 04:07 Prealbumin 5 mg/dL (18-38) L 06/30/17 17:15 TSH 3.33 mcIU/mL (0.34-5.60) 06/30/17 17:15 Cortisol 24.71 mcg/dL 07/01/17 04:07 Urine Color Yellow 07/01/17 02:45 Urine Appearance Clear 07/01/17 02:45 Urine pH 5.0 (5-9) 07/01/17 02:45 Ur Specific [place] 1.010 (1.010-1.030) 07/01/17 02:45 Urine Protein Negative (Negative) 07/01/17 02:45 Urine Ketones Negative (Negative) 07/01/17 02:45 Urine Blood 1+ (Negative) A 07/01/17 02:45 Urine Nitrate Positive (Negative) A 07/01/17 02:45 Urine Bilirubin Negative (Negative) 07/01/17 02:45 Urine Urobilinogen Negative (Negative) 07/01/17 02:45 Ur Leukocyte Esterase 2+ (Negative) A 07/01/17 02:45 Urine WBC (Auto) 3+(>20/hpf) (Absent) A 07/01/17 02:45 Urine RBC (Auto) 2+(6-10/hpf) (Absent) A 07/01/17 02:45 Ur Squamous Epith Cells Present (Absent) A 06/30/17 19:00 Urine Bacteria 1+ (Absent) A 07/01/17 02:45 Hyaline Casts Present (Absent) A 06/30/17 19:00 Urine Glucose Negative (Negative) 07/01/17 02:45 Blood Type A Positive 06/30/17 17:15 Antibody Screen Negative 06/30/17 17:15 Crossmatch See Detail 06/30/17 17:15 Donor Unit # [id number] 07/01/17 04:11 Post-Trans Blood Type A Positive 07/01/17 04:11 Post-Trans SINDY Negative 07/01/17 04:11 - Objective Active Medications: Acetaminophen (Tylenol Tab*) 650 mg PO Q4H PRN PRN Reason: FEVER/PAIN Last Admin: 07/01/17 09:11 Dose: 650 mg Al Hydrox/Mg Hydrox/Simethicone (Maalox Plus*) 30 ml PO Q6H PRN PRN Reason: INDIGESTION Ferrous Sulfate (Ferrous Sulfate Tab*) 325 mg PO BID KACIE Last Admin: 07/01/17 09:11 Dose: 325 mg Cefepime HCl (Maxipime 1 Gm In Dextrose Duplex (*)) 1 gm in 50 mls @ 100 mls/ hr IV Q12H KACIE Last Admin: 07/01/17 11:12 Dose: 100 mls/hr Potassium Chloride/Sodium Chloride (Ns 0.9% W/ 40 Meq Kcl 1000 Ml*) 1,000 mls @ 75 mls/hr IV PER RATE KACIE Last Admin: 07/01/17 11:56 Dose: 75 mls/hr Morphine Sulfate (Morphine Inj (Syringe)*) 2 mg IV Q4H PRN PRN Reason: PAIN Ondansetron HCl (Zofran Inj*) 4 mg IV Q4H PRN PRN Reason: NAUSEA/VOMITING Oxycodone/Acetaminophen (Percocet 5/325 Tab*) 1 tab PO Q4H PRN PRN Reason: Pain Last Admin: 07/01/17 12:01 Dose: 1 tab Vital Signs: Vital Signs: Temp Pulse Resp BP Pulse Ox 97.7 F 84 18 82/46 95 07/01/17 11:34 07/01/17 11:34 07/01/17 16:03 07/01/17 13:30 07/01/17 11:34 Patient Weight: Weight 138 lb 6.4 oz Intake and Output: Intake & Output 06/29/17 06/30/17 07/01/17 07/02/17 06:59 06:59 06:59 06:59 Intake Total 1380 340 Output Total 350 Balance 1030 340 Weight 138 lb 6.4 oz Intake: IV Fluids 1030 NS (0.9%) 1030 IVPB 320 NS (0.9%) 320 Oral 30 340 Output: Urine 350 Other: Estimated Void Small # Bowel Movements 1 1 Estimated Stool Amount Small Small # Voids 1 ADLs: Meal Record Start: 06/30/17 20: 33 Freq: DAILY@0900,1400,1800 Status: Active Protocol: Document 07/01/17 14:00 [id number] (Rec: 07/01/17 15:00 [id number]) Intake and Output Start: 06/30/17 20: 33 Freq: DAILY@0600,1400,2200 Status: Active Protocol: Document 06/30/17 22:00 (Rec: 06/30/17 22:49 [id number]) Document 07/01/17 06:00 (Rec: 07/01/17 06:04 [email or web address]) Document 07/01/17 14:00 [id number] (Rec: 07/01/17 15:00 [id number] [email or web address]) General Impression: Pleasant, weak man, lying in bed, A and Ox3, very lucid Head: Symmetrical Cardiovascular: NL Sounds; No Murmurs; No JVD, - - DIffuse peripheral edema Respiratory: Symmetrical Chest Expansion and Respiratory Effort Neurological: Alert and Oriented x 3 - Assessment Assessment: This man has hepatic compromise which prohibits chemotherapy at this time, and he and his /HCP have elected DNR/DNI/DNH status and he wants to return home. He [facility]l [facility] to [facility] and he needs a hospital bed delivered to his home before he arrives there after discharge. I do not think it is necessary to delay his discharge for IV antibiotics. If antibiotics are still felt to be warranted for this patient, he could be switched to a third generation cephalosporin. I described the Medicare hospice benefit to this family and they are in agreement that this is the preferable option at this time. I am available to them for further questions if they arise. - Plan Consult Plan (MU): Hospice - Time On Unit Date of Evaluation: 07/01/17 Hospice Consult Time in: 16:00 Hospice Consult Time Out: 16:30 Hospice Consult Time Total: 30 > 50% of Time Spend In Counseling or Coordinating Care: Yes
[2017-07-02] MEDS: NS 0.9% w/ 40 Meq KCL 1000 ML* 1,000 ML IV SCH (03:24)
[2017-07-02 06:12] LABS: EGFR Non-African American 25.6 (>60)
[2017-07-02 06:19] LABS: Hematocrit 29 % (42-52); Hemoglobin 9.2 g/dl (14.0-18.0); Mean Corpuscular HGB Conc 32 g/dl (31-36); Mean Corpuscular Hemoglobin 22 pg (27-31); Mean Corpuscular Volume 70 fL (80-94); Red Blood Count 4.11 10^6/ul (4.0-5.4); Red Cell Distribution Width 31 % (10.5-15); White Blood Count 10.2 10^3/ul (3.5-10.8)
[2017-07-02 06:43] LABS: Monocytes % 5 % (0-7)
[2017-07-02 06:44] LABS: Mean Platelet Volume 9 um3 (7.4-10.4); Platelet Count 92 10^3/ul (150-450)
[2017-07-02] MEDS: Cefepime 1 GM in Dextrose(*) 1 GM/50 ML BAG IV SCH ×2 (11:55→23:07)
[2017-07-02] MEDS: Ferrous Sulfate TAB* 325 MG PO SCH ×2 (11:55→23:08)
[2017-07-02] MEDS: oxyCODONE/Acetamin 5/325 MG* TAB PO PRN (23:08)
[2017-07-03 07:36] VITALS: BP 101/52
[2017-07-03] MEDS: Ferrous Sulfate TAB* 325 MG PO SCH (08:40)
== END 2017-07-03 09:42 | disposition hospice, home (50) | DRG 442 ==
LOC: ED 16:38 → MEDTELE 20:14 → MED 07-02 17:03
PROVIDERS: ADMIT Pediatrics; ATTEND Internal Medicine Hematology & Oncology
PROC: 30233N1 Transfusion of Nonautologous Red Blood Cells into Peripheral Vein, Percutaneous Approach (ICD-10-PCS; principal; 2017-06-30)
DX: K72.90 Hepatic failure, unspecified without coma (principal); C18.9 Malignant neoplasm of colon, unspecified; C78.7 Secondary malignant neoplasm of liver and intrahepatic bile duct; R18.8 Other ascites; I50.9 Heart failure, unspecified; E86.0 Dehydration; N39.0 Urinary tract infection, site not specified; B96.89 Other specified bacterial agents as the cause of diseases classified elsewhere; R51 Headache; R68.0 Hypothermia, not associated with low environmental temperature; Z66 Do not resuscitate; R33.8 Other retention of urine; D50.9 Iron deficiency anemia, unspecified; I34.0 Nonrheumatic mitral (valve) insufficiency; Z79.82 Long term (current) use of aspirin; Z79.899 Other long term (current) drug therapy; Z82.49 Family history of ischemic heart disease and other diseases of the circulatory system; Z80.0 Family history of malignant neoplasm of digestive organs; Z87.891 Personal history of nicotine dependence
CPT/HCPCS: 36415; 70450; 71045; 80048; 80053; 81003; 81015; 82140; 82248; 82272; 82533; 82550; 83605; 83735; 84134; 84443; 84484; 85014; 85018; 85025; 85610; 86078; 86140; 86850; 86900; 86901; 86922; 87040; 87077; 87086; 87186; 93005; 93975; 99238; 99284; A9270-GY; J0692; P9040